=== PATIENT | male | born 1965 | race Caucasian/White ===

== ENCOUNTER 2017-05-15 09:07 | Emergency (ER) | payer OTHER ==
[2017-05-15 09:47] VITALS: BP 127/88
--- NOTE | 2017-05-15 10:25 | UC ---
Ear Complaint HPI - HPI Summary HPI Summary: complaint of right ear pain can't hear well out right ear he thinks his ear is plugged with wax tried to use hydrogen peroxide without relief - History of Current Complaint Chief Complaint: UCEar Stated Complaint: RIGHT EAR COMPLAINT Time Seen by Provider: 05/15/17 10:19 Hx Obtained From: Patient - Allergies/Home Medications Allergies/Adverse Reactions: Allergies Allergy/AdvReac Type Severity Reaction Status Date / Time No Known Allergies Allergy Verified 05/15/17 09:40 Home Medications: Home Medications Fenofibrate [Tricor] 48 mg PO DAILY 05/15/17 [History Confirmed 05/15/17] PMH/Surg Hx/FS Hx/Imm Hx Previously Healthy: Yes Endocrine History: Dyslipidemia Psychological History: Anxiety - Surgical History Surgical History: Yes Surgery Procedure, Year, and Place: Dual hernia repair, surgery on hand from infected dog bite - Family History Known Family History: Negative: Cardiac Disease, Hypertension, Diabetes - Social History Occupation: Employed Full-time Lives: With Family Alcohol Use: Occasionally Substance Use Type: None Smoking Status (MU): Former Smoker Have You Smoked in the Last Year: No When Did the Patient Quit Smoking/Using Tobacco: about 6-7 years ago Review of Systems Constitutional: Negative Skin: Negative Eyes: Negative ENT: Ear Ache Respiratory: Negative Cardiovascular: Negative Gastrointestinal: Negative Genitourinary: Negative Motor: Negative Neurovascular: Negative Musculoskeletal: Negative Neurological: Negative Psychological: Negative All Other Systems Reviewed And Are Negative: Yes Physical Exam Triage Information Reviewed: Yes Appearance: No Pain Distress, Well-Nourished Vital Signs: Initial Vital Signs Temp 97.5 F 05/15/17 09:42 Pulse 68 05/15/17 09:42 Resp 18 05/15/17 09:42 BP 127/88 05/15/17 09:42 Pulse Ox 97 05/15/17 09:42 Vital Signs Reviewed: Yes Eyes: Positive: Conjunctiva Clear ENT: Positive: Pharynx normal, Other: - cerumen impaction bilaterally. Negative : Nasal congestion, Nasal drainage Neck: Positive: No Lymphadenopathy Respiratory: Positive: Lungs clear, Normal breath sounds, No respiratory distress, No accessory muscle use Cardiovascular: Positive: RRR, No Murmur, Pulses Normal Abdomen Description: Positive: Nontender, Soft Bowel Sounds: Positive: Present Musculoskeletal: Positive: No Edema Neurological: Positive: Alert Psychological Exam: Normal Skin Exam: Normal Re-Evaluation - Re-Evaluation First Eval Change: Improved - both TM's clear and flat cerumen removed Ear Complaint Course/Dx - Differential Dx/Diagnosis Differential Diagnosis/HQI/PQRI: Cerumen Impaction Provider Diagnoses: cerumen impaction bilaterally Discharge - Discharge Plan Condition: Stable Disposition: HOME Patient Education Materials: Cerumen Impaction (ED) Referrals: Pinky Grant PA [Primary Care Provider] - Additional Instructions: Please start using debrox in a week in each ear canal. Please review your discharge instructions. If your symptoms do not improve please call your primary care provider or return to urgent care. Your blood pressure is pre-hypertensive reading. Please contact your primary care provider within 1 day -4 weeks for further evaluation
== END 2017-05-15 10:59 | disposition home or self-care (01) ==
LOC: UCCORT 09:07
DX: H61.23 Impacted cerumen, bilateral (principal); E78.5 Hyperlipidemia, unspecified; F41.9 Anxiety disorder, unspecified; Z87.891 Personal history of nicotine dependence
CPT/HCPCS: 99213; G0463

== ENCOUNTER 2017-11-11 08:45 | Emergency (ER) | payer OTHER ==
[2017-11-11 09:06] VITALS: BP 138/108
[2017-11-11] MEDS ORDERED: Albuterol/Ipratropium NEB.SOL* Albuterol 2.5 MG/Ipratropium 0.5 MG 3 ML INH ONE (09:29)
--- NOTE | 2017-11-11 09:29 | UC ---
Respiratory Complaint HPI - HPI Summary HPI Summary: Pt with cough and wheeze progressive since Thanksgi. Pt states + green sputum and wheeze. tactile fevers and chills. decreased appetite. No cp, abd pain. No n/v. No rash. Pt with a h/o asthma, copd. No tobacco + sick contact + little relief with OTC meds. Pt states last week thought was improving, but then got worse again Pt's medications reviewed this visit - History of Current Complaint Chief Complaint: UCRespiratory Stated Complaint: CHEST [place] Time Seen by Provider: 11/11/17 08:59 Hx Obtained From: Patient Onset/Duration: Gradual Onset, Lasting Weeks Timing: Constant Severity Initially: Mild Severity Currently: Moderate Pain Intensity: 3 - with coughing only Pain Scale Used: 0-10 Numeric Character: Cough: Productive, Sputum Description: - green Alleviating Factors: OTC Meds, Upright Position Associated Signs And Symptoms: Positive: Wheezing, URI - Allergies/Home Medications Allergies/Adverse Reactions: Allergies Allergy/AdvReac Type Severity Reaction Status Date / Time No Known Allergies Allergy Verified 11/11/17 09:06 Home Medications: Home Medications Ibuprofen TAB* [Motrin TAB* 600 MG] 600 mg PO DAILY PRN 11/11/17 [History Confirmed 11/11/17] PMH/Surg Hx/FS Hx/Imm Hx Previously Healthy: Yes - Surgical History Surgical History: Yes Surgery Procedure, Year, and Place: Dual hernia repair, surgery on hand from infected dog bite - Family History Known Family History: Negative: Cardiac Disease, Hypertension, Diabetes - Social History Occupation: Employed Full-time Lives: With Family Alcohol Use: Rare Substance Use Type: None Smoking Status (MU): Former Smoker Have You Smoked in the Last Year: No When Did the Patient Quit Smoking/Using Tobacco: about 6-7 years ago Review of Systems Constitutional: Fever, Chills, Fatigue Skin: Negative ENT: Sinus Congestion Respiratory: Cough, Other - wheeze Musculoskeletal: Negative All Other Systems Reviewed And Are Negative: Yes Physical Exam Triage Information Reviewed: Yes Appearance: No Pain Distress, Well-Nourished, Other: - tired Vital Signs: Initial Vital Signs Temp 98.1 F 11/11/17 08:58 Pulse 110 11/11/17 08:58 Resp 16 11/11/17 08:58 BP 138/108 11/11/17 08:58 Pulse Ox 98 11/11/17 08:58 Vital Signs Reviewed: Yes Eye Exam: Normal Eyes: Positive: Conjunctiva Clear ENT: Positive: Hearing grossly normal, Nasal congestion, TMs normal Dental Exam: Normal Neck exam: Normal Neck: Positive: Supple, Nontender, No Lymphadenopathy Respiratory Exam: Normal Respiratory: Positive: Chest non-tender, No respiratory distress, No accessory muscle use, Wheezing - Pt with diffuse wheeze +rhonci left speaking full sentences with intermittent coarse cough Cardiovascular Exam: Normal Cardiovascular: Positive: RRR - borderline tachy, No Murmur Abdominal Exam: Normal Abdomen Description: Positive: Nontender Bowel Sounds: Positive: Present Musculoskeletal Exam: Normal Musculoskeletal: Positive: Strength Intact Neurological Exam: Normal Neurological: Positive: Alert Psychological Exam: Normal Psychological: Positive: Normal Response To Family Skin Exam: Normal UC Diagnostic Evaluation - Laboratory O2 Sat by Pulse Oximetry: 98 - Radiology Xray Interpretation: No Acute Changes Radiology Interpretation Completed By: Radiologist Re-Evaluation - Re-Evaluation First Eval Change: Improved - Pt wheezing improved following neb pt states feels better will rx abx, mdi secrtion precaution Pt advised to f/u with pcp re BP Respiratory Course/Dx - Course Course Of Treatment: Pt with 4 week cough, productive with wheezing. pt with rhonci L. diffuse wheeze. will neb, cxr. reassess - Differential Dx/Diagnosis Provider Diagnoses: bronchitis Discharge - Discharge Plan Condition: Stable Disposition: HOME Prescriptions: Albuterol 2.5MG/3ML (0.083%)* [Ventolin 2.5 MG/3 ML NEB.FLY*] 2.5 mg INH Q4H # 30 neb.fly Amoxicillin PO (*) [Amoxicillin 875 MG (*)] 875 mg PO BID #20 tab Patient Education Materials: Acute Bronchitis (ED) Referrals: No Primary Care Phys,NOPCP [Primary Care Provider] - Additional Instructions: - Stay well hydrated. Drink plenty of non-alcoholic, non-caffinated beverages. - After you have been on antibiotics for 2 days - change your toothbrush and your pillowcase. These infections are spread by secretions - do NOT share eating or drinking utensils - clean items you share with other people such as cell phones, computer mouse, TV remote, computer tablets, etc - Alternate ibuprofen (Advil, Motrin) 600mg and Tylenol every 3 hours for pain or fever. Take with food. Do NOT take for more than 4-5 days. - Use nebulizer every 4hour for wheeze - okay to take over the counter cough medication -humidify the air in the room you sleep - Call your doctor to schedule a follow-up appointment. Call your doctor or return with questions or concerns
--- NOTE | 2017-11-11 09:58 | RAD ---
Indication: Cough, left upper lobe rhonchi. 2 views of the chest including dual energy PA views demonstrate no mediastinal shift. Heart is of normal size and configuration. Lung dupont are clear. IMPRESSION: No active cardiopulmonary disease is noted.
== END 2017-11-11 10:32 | disposition home or self-care (01) ==
LOC: UCCORT 08:45
DX: J40 Bronchitis, not specified as acute or chronic (principal); Z87.891 Personal history of nicotine dependence
CPT/HCPCS: 71020; 99212; A9270-GY; G0463